=== PATIENT | male | born 1935 | race Caucasian/White ===

== ENCOUNTER 2016-10-02 06:03 | Inpatient (IN) | payer MEDICARE, OTHER ==
[2016-09-26 16:03] LABS: BASOPHILS 0.4 %; BASOPHILS ABSOLUTE 0.03 10/3/uL (0.0-0.16); EOSINOPHILS 1.1 %; EOSINOPHILS ABSOLUTE 0.08 10/3/uL (0.0-0.53); HEMATOCRIT 40.2 % (40.0-51.0); HEMOGLOBIN 13.6 g/dL (13.6-17.8); IMMATURE GRANULOCYTES 0.4 %; IMMATURE GRANULOCYTES ABSOLUTE 0.03 10/3/uL (0.0-0.11); LYMPHOCYTES 25.4 %; LYMPHOCYTES ABSOLUTE 1.89 10/3/uL (0.67-4.30); MEAN CORPUS HGB CONC 33.8 g/dL (32.0-36.0); MEAN CORPUSCULAR HEMOGLOB 30.8 pg (26.0-34.0); MEAN CORPUSCULAR VOLUME 91.2 fL (80-100); MEAN PLATELET VOLUME 9.7 fL (9.2-13.0); MONOCYTES 10.7 %; NEUTROPHILS ABSOLUTE 4.62 10/3/uL (2.02-8.40); PLATELET COUNT 263 10/3/uL (150-400); RBC DISTRIBUTION WIDTH 14.7 % (12.0-16.0); RED CELL COUNT 4.41 10/6/uL (4.7-6.1); WHITE BLOOD CELLS 7.5 10/3/uL (4.5-10.5)
[2016-09-26 16:04] LABS: MANUAL DIFF NO %
[2016-09-26 16:15] LABS: CHLORIDE, SERUM 105 MMOL/L (96-112); CO2 (CARBON DIOXIDE) 27 MMOL/L (24-34); CREATININE 1.52 MG/DL (0.70-1.30); GFR AFRICAN AMERICAN 49 ML/MIN (>=60); GFR NON AFRICAN AMERICAN 43 ML/MIN (>=60); GLUCOSE, SERUM 104 MG/DL (60-99); POTASSIUM, SERUM 3.6 MMOL/L (3.5-5.3); SODIUM, SERUM 141 MMOL/L (135-148)
[2016-09-26 16:16] LABS: BUN (BLOOD UREA NITROGEN) 33 MG/DL (6-23)
[2016-09-26 16:17] LABS: INTERNATIONAL NORMAL RATI 1.1 UNITS (-)
[2016-09-26 16:18] LABS: PROTIME (NOT ORD) 13.8 SEC (12.0-14.5)
[2016-09-26 16:20] LABS: ASCORBIC ACID (UR NOT ORDER) 40 (NEG); BILIRUBIN, URINE NEGATIVE (NEG); KETONE, URINE NEGATIVE (NEG); LEUKOCYTE ESTERASE(NOT OR NEG (NEG); WBC (NOT ORDERED) (RFLEX) < 1 (0-5)
--- NOTE | ~2016-10-02 | OP ---
Record Of Operation [facility] [address] [place]. [address] NAME: FELICITA ANNE : 37 STATUS : ADM IN PAT#: [id number] AGE: 81 ADM/REG DATE : 10/02/16 MR#: [id number] REPORT SERV DATE: 10/02/16 DICTATED BY: JHONATAN ANDUJAR DATE: 10/02/16 REPORT STATUS : Draft TRANSCRIBED BY: MODL DATE: 10/02/16 DATE OF PROCEDURE: 10/02/2016 PREPROCEDURE DIAGNOSIS: High-grade right internal carotid artery stenosis. 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 PROCEDURE PERFORMED: Right eversion carotid endarterectomy with intraoperative ultrasound guidance and permissive hypertension. ANESTHESIA: Local with MAC. COMPLICATIONS: None. INDICATION FOR PROCEDURE: Secondary to this very pleasant 81-year-old woman presenting with progressive high-grade critical right internal carotid artery obstruction, recommendations were made for endarterectomy. Risks and benefits were discussed. Consent was obtained. DETAILS OF PROCEDURE: The patient was brought to the endovascular operating room, placed in supine position, and prepped and draped in routine sterile fashion with attention to the right neck. Intraoperative ultrasound was utilized to locate the common carotid artery and its bifurcation. This was marked on the skin. An incision was made based of these findings. Pictures of these structures were taken and placed in the chart. Next, after appropriate local and MAC anesthesia, dissection was then proceeded down through the skin and subcutaneous tissues to the common carotid artery, which was loop controlled. It was skeletonized along its length including the external and the internal. The superior thyroidal artery was ligated and divided and the ascending pharyngeal artery was also ligated and divided. Next, 5000 units of heparin were given and allowed to circulate. The distal internal carotid artery was amputated from the bulb to create a wide patch after permissive hypertension was instituted, driving the systolic blood pressure to 200. The patient maintained normal neurologic integrity with ability to countermove his contralateral hand throughout the entire procedure. The internal carotid artery was then endarterectomized, removing an 80% lesion that was slightly hemorrhagic and clearly high risk. The endarterectomy plane was clear at the distal margin. Endarterectomy was then proceeded to the external to bulb and then common to my satisfaction. Once this was completed, all areas were irrigated with heparin flush and then the anastomosis was then performed with 6-0 Prolene on a C1 needle running continuous stitch. This was hemostatic upon completion with the aid of Surgicel and FloSeal for localized hemostasis. Once that was completed, the platysma was closed with Vicryl and Monocryl for the skin. Steri-Strip dressings were applied. The patient tolerated the procedure well. CL/MAGUI Jhon[facility] [place] [id number] [place]. [address] NAME: FELICITA ANNE : 37 STATUS : ADM IN [facility]#: [id number] AGE: 81 ADM/REG DATE : 10/02/16 MR#: [id number] REPORT SERV DATE: 10/02/16 DICTATED BY: JHONATAN ANDUJAR DATE: 10/02/16 REPORT STATUS : Draft TRANSCRIBED BY: MAGUI DATE: 10/02/16 Mery Andujar / [id number] CC: Mery Mijares M.D.
[~2016-10-02 06:03] MED LIST: ADVIL PO; ASAB PO; FISH-EPA1000 MG PO; FLOMAX4 PO; LIOR10 PO; LOP50 PO; MAX25 PO; METPAKSF PO; MULTI-VIT/F1 PO; MULTIPLE VIT PO; NEUR300 PO; NORCO1 TA2 PO; PCET PO; PLAVIX PO; PROAIR HFA INH; RELA5 PO; TOPXL50 PO; V5
[2016-10-02 10:23] LABS: HEMATOCRIT 36.8 % (40.0-51.0); HEMOGLOBIN 12.4 g/dL (13.6-17.8)
[2016-10-03 04:47] LABS: BASOPHILS 0.2 %; BASOPHILS ABSOLUTE 0.02 10/3/uL (0.0-0.16); EOSINOPHILS 0.1 %; EOSINOPHILS ABSOLUTE 0.01 10/3/uL (0.0-0.53); HEMATOCRIT 36.6 % (40.0-51.0); IMMATURE GRANULOCYTES 0.2 %; IMMATURE GRANULOCYTES ABSOLUTE 0.02 10/3/uL (0.0-0.11); LYMPHOCYTES 12.8 %; LYMPHOCYTES ABSOLUTE 1.37 10/3/uL (0.67-4.30); MANUAL DIFF NO %; MEAN CORPUS HGB CONC 32.8 g/dL (32.0-36.0); MEAN CORPUSCULAR HEMOGLOB 29.9 pg (26.0-34.0); MEAN CORPUSCULAR VOLUME 91.3 fL (80-100); MEAN PLATELET VOLUME 9.1 fL (9.2-13.0); MONOCYTES 9.8 %; MONOCYTES ABSOLUTE 1.05 10/3/uL (0.21-1.20); NEUTROPHILS 76.9 %; NEUTROPHILS ABSOLUTE 8.23 10/3/uL (2.02-8.40); PLATELET COUNT 204 10/3/uL (150-400); RBC DISTRIBUTION WIDTH 14.5 % (12.0-16.0); RED CELL COUNT 4.01 10/6/uL (4.7-6.1); WHITE BLOOD CELLS 10.7 10/3/uL (4.5-10.5)
[2016-10-03 05:03] LABS: A/G RATIO 0.8 (0.7-1.9); ALKALINE PHOSPHATASE 57 U/L (45-117); CALCIUM, SERUM 8.2 MG/DL (8.5-10.4); CHLORIDE, SERUM 104 MMOL/L (96-112); CO2 (CARBON DIOXIDE) 27 MMOL/L (24-34); CREATININE 1.35 MG/DL (0.70-1.30); GFR AFRICAN AMERICAN 57 ML/MIN (>=60); GFR NON AFRICAN AMERICAN 49 ML/MIN (>=60); GLOBULIN 3.5 G/DL (2.5-4.1); POTASSIUM, SERUM 3.4 MMOL/L (3.5-5.3); SGOT(AST) 15 U/L (5-40); SGPT(ALT) 18 U/L (5-65); SODIUM, SERUM 137 MMOL/L (135-148); TOTAL BILIRUBIN 0.9 MG/DL (0-1.2); TOTAL PROTEIN 6.4 G/DL (6.0-8.5)
[2016-10-03 05:05] LABS: ALBUMIN 2.9 G/DL (3.5-5.0); BUN (BLOOD UREA NITROGEN) 28 MG/DL (6-23); GLUCOSE, SERUM 134 MG/DL (60-99)
== END 2016-10-03 13:44 | disposition home or self-care (01) | DRG 39 ==
LOC: SDC/OF 06:03 → CVICU 11:45
PROVIDERS: Specialist
PROC: 03CK0ZZ Extirpation of Matter from Right Internal Carotid Artery, Open Approach (ICD-10-PCS; principal; 2016-10-02 07:45)
DX: I65.21 Occlusion and stenosis of right carotid artery (principal); J44.9 Chronic obstructive pulmonary disease, unspecified; N18.3 Chronic kidney disease, stage 3 (moderate); M19.90 Unspecified osteoarthritis, unspecified site; Z85.46 Personal history of malignant neoplasm of prostate; I73.9 Peripheral vascular disease, unspecified; M10.9 Gout, unspecified; N40.1 Benign prostatic hyperplasia with lower urinary tract symptoms; E78.5 Hyperlipidemia, unspecified; I12.9 Hypertensive chronic kidney disease with stage 1 through stage 4 chronic kidney disease, or unspecified chronic kidney disease; Z96.642 Presence of left artificial hip joint; Z83.3 Family history of diabetes mellitus; Z80.1 Family history of malignant neoplasm of trachea, bronchus and lung; Z79.02 Long term (current) use of antithrombotics/antiplatelets; Z79.82 Long term (current) use of aspirin; Z79.899 Other long term (current) drug therapy
CPT/HCPCS: 71020; 80048; 80053; 81001; 83735; 85014; 85018; 85025; 85610; 87641; 88304; 88311; 93005; A9270-GY; J0690; J2250; J2370; J3010